=== PATIENT | female | born 1960 | race Caucasian/White ===

== ENCOUNTER 2023-07-05 11:41 | Outpatient (CLI) | payer OTHER | END 2023-07-05 11:42 | disposition home or self-care (01) | LOC: RAD 11:41 | PROVIDERS: ATTEND Family Medicine | DX: S46.092A Other injury of muscle(s) and tendon(s) of the rotator cuff of left shoulder, initial encounter (principal); M47.22 Other spondylosis with radiculopathy, cervical region; M19.012 Primary osteoarthritis, left shoulder | CPT/HCPCS: 72050 ==